=== PATIENT | female | born 1965 | race Hispanic/Latino ===

== ENCOUNTER 2016-10-24 20:45 | Emergency (ER) | payer OTHER ==
[2016-10-24 21:19] VITALS: BP 138/91; PULSE 122; O2SAT 96
--- NOTE | 2016-10-24 22:35 | ED.REPORT ---
HPI-General Illness Date of Service Oct 24, 2016 ED Provider: Mar Rowland MD This is a 51 year old female with a history of hypertension presenting to the emergency department due to epistaxis that began five hours ago. Pt is wearing a clamp at this time. She is unsure if bleeding occurred from one nare or both. Denies dizziness, lightheadedness, or SOB. Also reports chest pressure, last episode yesterday that lasts a few seconds at a time. Additional symptoms include chills and productive cough. Denies fever, vomiting, diaphoresis, change LOC, or nausea. Patient had a nose bleed one year ago that was treated by cauterization. No ASA today but took one yesterday Nursing Notes Stated Complaint: NOSE BLEED, VOMITING, HX OF HIGH BP Chief Complaint: General Complaint Nursing Notes Reviewed: Yes Allergies: Coded Allergies: No Known Allergies (Unverified , 02/23/16) General Time Seen by MD: 22:33 Chief Complaint Other Hx Obtained From: Patient Arrived By: Walk-in Sudden in Onset?: Yes Onset Occurred: 5 - 8 hours ago Symptom Duration: Since onset Severity: Current: Mild Pertinent Negative: Pt denies other symptoms Recent Healthcare: No recent doctor visit, No recent hospitalization Similar Sx Previous: No Past Medical History Past Medical History Reports: Hypertension Past Surgical History None reported Smoking History Never Smoker Social History Alcohol Use: Denies alcohol use Drug Use: Denies drug use Ambulatory Status Independent Review of Systems Full Review of Systems Constitutional: Reports: Chills, Denies: Fever Ears / Nose / Throat: Reports: Nose bleeding Respiratory: Denies: Non-productive cough, Shortness of breath GI: Denies: Abdominal pain, Constipation, Diarrhea, Nausea, Vomiting Neurologic: Denies: Headache Complete sys rev & neg: except as marked. Physical Exam Vital Signs Vital Signs Date Time Temp Pulse Resp B/P Pulse Ox O2 Delivery O2 Flow Rate FiO2 10/24/16 21:19 36.4 122 138/91 96 Room Air Initial VS: Reviewed General/Constitutional: Well-developed, Well-nourished Neck: Supple, Non-tender, Full range of motion Respiratory: Breath sounds normal, Clear to auscultation, No respiratory distress Cardiovascular: Regular rate & rhythm, Heart sounds normal, Intact distal pulses Abdomen / GI: Soft, Non-tender, No guarding, No rebound, No distention Extremities: Vascular intact, Neuro intact, No swelling, No tenderness Skin: Warm, Dry, No cyanosis Neurologic: Alert, Oriented, Nonfocal Psychiatric: Mood/affect normal, Behavior normal, Normal thought content Head / Eyes: Normocephalic, PERRL, EOMI, Conjunctiva NL (no conjunctival pallor ) ENT: Pharynx NL No active bleeding, dried blood present in bilateral nares Interpretation & Diagnostics Lab Results Interpretation Result Diagram: 10/25/1610410/25/16 010 Test 10/25/16 01:05 White Blood Count 10.2th/mm3 (3.8-10.1) Red Blood Count 3.86mil/mm3 (3.90-5.20) Hemoglobin 11.2g/dL (12.0-15.6) Hematocrit 33.5% (35.0-46.0) Mean Corpuscular Volume 86.8fL (81-100) Mean Corpuscular Hemoglobin 29.0pg (27.0-35.0) Mean Corpuscular Hemoglobin Concent 33.4% (32.0-37.0) Red Cell Distribution Width 12.9% (12.3-15.4) Platelet Count 261bil/L (150-400) Prothrombin Time 10.6sec (8.1-12.5) Prothromb Time International Ratio 0.99ratio Sodium Level 135mEq/L (134-144) Potassium Level 4.1mEq/L (3.5-5.2) Chloride Level 103mEq/L (97-108) Carbon Dioxide Level 20mmol/L (18-29) Blood Urea Nitrogen 34mg/dL (6-24) Creatinine 0.55mg/dL (0.57-1.00) Estimat Glomerular Filtration Rate 166mL/min (>59) Glucose Level 139mg/dL (60-99) Calcium Level 8.4mg/dL (8.5-10.1) Total Bilirubin 0.4mg/dL (0.0-1.2) Aspartate Amino Transf (AST/SGOT) 16U/L (0-50) Alanine Aminotransferase (ALT/SGPT) 15U/L (0-32) Alkaline Phosphatase 85U/L (25-150) Troponin T < 0.010ug/L (0.0-0.011) Total Protein 6.6g/dL (6.4-8.4) Albumin 3.7g/dL (3.4-5.0) ECG Interpretation ECG Interpretation: sinus tachycardia at rate of 109 t-wave inversion in AVR Time: 00:02 Interpreted by: ED physician Re-Eval/Medical Decision Med Decision/Clinical Course Delay in patient care, labs were not drawn when ordered 81-year-old female with past medical history of hypertension and epistaxis here with nosebleed and tachycardia. Differential diagnosis includes epistaxis versus anxiety versus anemia versus ACS. She did endorse chest pain yesterday, but has had no chest pain at all today. Initial troponin is normal. Her hemoglobin today is 11 down from 13 2 years ago. I do not feel she requires transfusion at this time. She has not had any nosebleed today. Given she has had no chest pain today, has a normal EKG, and her troponin is negative, I do not feel she requires further workup of her chest pain. CMP is unremarkable. She was givento go home with, and is amenable to follow-up with her primary care physician. He was given very strict return precautions. Time of Eval: 02:05 Re-Evaluation/Progress Note: Plan for d/c, all questions addressed Counseled Regarding: Diagnosis, Lab results, Need for follow-up, When/why to return to ED Discharge & Departure Primary Impression: Epistaxis Disposition: Home Discharge Condition All VS Reviewed: Yes Condition: Stable Patient Instructions: Epistaxis (ED) Additional Instructions: Thank you for seeking care in the emergency department. Your workup was reassuring. Follow up with your primary care provider for further evaluation of your symptoms. Please return to the emergency department with any new or worsening symptoms. Referrals: Phyllis Cardona (PCP) [place] Attestation Portions of this note were transcribed by Leon Carrillo. I, Dr. Rowland personally performed the history, physical exam and medical decision-making; I reviewed and confirmed the accuracy of the information in the transcribed note. Signed by: cesia Mayer. 10/24/2016, 03:00. Mar Rowland MD Oct 24, 2016 22:35 LEON CARRILLO Oct 24, 2016 22:36
[2016-10-25 01:21] LABS: Mean Corpuscular Volume 86.8 fL (81-100)
[2016-10-25 01:30] LABS: INR 0.99 ratio
[2016-10-25 01:35] LABS: TROPONIN T < 0.010 ug/L (0.0-0.011)
[2016-10-25 02:20] VITALS: BP 107/68; PULSE 97; RESP 23; O2SAT 98
--- NOTE | 2016-10-25 09:04 | DRSVH ---
PROCEDURE: X-RAY CHEST, TWO VIEWS ([id number]) INDICATIONS: chest pain TECHNIQUE: 2 views of the chest were acquired. COMPARISON: None. FINDINGS: Surgical changes and devices: None. Lungs and pleura: No pleural effusions or pneumothorax. Lungs are clear. Mediastinum: Mediastinal contours are normal. Heart size is normal. Bones and chest wall: No suspicious bony abnormalities. Soft tissues appear unremarkable. IMPRESSION: No acute cardiopulmonary disease. Dictated by: Killian Warren [facility] Interpreted: Annmarie Chirinos MD on 10/25/2016 at 9:03 Transcribed by: EVA on 10/25/2016 at 9:04 Approved by: Annmarie Chirinos MD, PhD on 10/25/2016 at 17:17
== END 2016-10-25 02:20 | disposition home or self-care (01) ==
LOC: SED 20:45
DX: R04.0 Epistaxis (principal); R07.89 Other chest pain; I10 Essential (primary) hypertension

== ENCOUNTER 2016-12-14 19:51 | Emergency (ER) | payer OTHER ==
[~2016-12-14] VITALS: Ht 160 cm; Wt 94.1 kg
[2016-12-14 19:55] VITALS: BP 138/89; PULSE 70; RESP 18; O2SAT 99
--- NOTE | 2016-12-14 20:54 | DRSVH ---
PROCEDURE: X-RAY CHEST ONE VIEW, PORTABLE ([id number]) INDICATIONS: CHEST PAIN, worse with stress at work TECHNIQUE: One view of the chest was acquired. COMPARISON: None. FINDINGS: Surgical changes and devices: None. Lungs and pleura: No pleural effusions or pneumothorax. Lungs are clear. Mediastinum: Mediastinal contours appear normal. Heart size is normal. Bones and chest wall: No suspicious bony lesions. Overlying soft tissues appear unremarkable. IMPRESSION: No acute cardiopulmonary disease process. Dictated by: Annmarie Chirinos MD, PhD on 12/14/2016 at 20:52 Approved by: Annmarie Chirinos MD, PhD on 12/14/2016 at 20:53
--- NOTE | 2016-12-14 21:54 | ED.REPORT ---
HPI-Chest Pain 40 and Over Date of Service December 14, 2016 ED Provider: Quique Sampson MD A 51 year old female with a history of hypertension is referred to the ED from Urgent Care due to left-sided chest pain. The pt has been experiencing this chest pain intermittently for two weeks but denies diaphoresis or shortness of breath during the episodes. The episodes seem to be related to stress at work and occur for approximately a minute once per day. She experienced an episode while at Urgent Care at 19:00 and was referred to the ED for further evaluation. Nursing Notes Stated Complaint: CHEST PAIN/FROM [facility] Chief Complaint: Chest Pain Nursing Notes Reviewed: Yes Allergies: Coded Allergies: No Known Allergies (Unverified , 02/23/16) Scheduled Lisinopril (Lisinopril) 10 Mg Tablet 10 MG PO DAILY General Time Seen by MD: 21:52 Chief Complaint Chest pain Hx Obtained From: Patient, Daughter, Other family... Arrived By: Walk-in Sudden in Onset?: Yes Onset Occurred: 1 - 4 hours ago Recent Healthcare: No recent hospitalization, Recent doctor visit Similar Sx Previous: Yes Past Medical History Past Medical History Reports: Hypertension Past Surgical History renal lithiasis Reports: Smoking History Never Smoker Social History Alcohol Use: Denies alcohol use Drug Use: Denies drug use Other Social History: Good social support Ambulatory Status Independent Review of Systems Respiratory: Denies: Non-productive cough, Shortness of breath Cardiovascular: Reports: Chest pain GI: Denies: Abdominal pain Skin: Denies Diaphoresis Complete sys rev & neg: except as marked. Physical Exam Initial Vital Signs Vital Signs (First) Date Time Temp Pulse Resp B/P Pulse Ox O2 Delivery O2 Flow Rate FiO2 12/14/16 19:55 36.2 70 18 138/89 99 Room Air Initial VS: Reviewed, Vital signs normal General/Constitutional: Awake, Alert, Well hydrated Respiratory / Chest: Atraumatic, Breath sounds NL, Breath sounds = bilat, No respiratory distress no chest wall tenderness Cardiovascular: Heart rate NL, Regular rhythm, Heart sounds NL Abdomen: Atraumatic, Soft, Non-tender Neck: Atraumatic, Supple, Full range of motion, No JVD Back: Atraumatic, Full range of motion Lower Extremity / Pelvis / MS: Atraumatic, Full range of motion, No edema Skin: Atraumatic, Color NL, No rash, Warm, Dry Neurologic: Oriented X3, Speech NL, No motor deficits, No sensory deficits Psychiatric: Affect NL, Mood NL Head / Eyes: Atraumatic, Normocephalic, PERRL, EOMI ENT: Atraumatic, Airway patent, Mucous membranes moist Upper Extremity / MS: Atraumatic, Full range of motion, No edema Interpretation & Diagnostics Lab Results Interpretation Result Diagram: 12/14/16211812/14/162118 Test 12/14/16 21:19 White Blood Count 7.3th/mm3 (3.8-10.1) Red Blood Count 4.04mil/mm3 (3.90-5.20) Hemoglobin 10.6g/dL (12.0-15.6) Hematocrit 33.4% (35.0-46.0) Mean Corpuscular Volume 82.7fL (81-100) Mean Corpuscular Hemoglobin 26.2pg (27.0-35.0) Mean Corpuscular Hemoglobin Concent 31.7% (32.0-37.0) Red Cell Distribution Width 13.6% (12.3-15.4) Platelet Count 310bil/L (150-400) Neutrophils (%) (Auto) 56.4% (40-74) Lymphocytes (%) (Auto) 30.1% (14-46) Monocytes (%) (Auto) 8.9% (4-12) Eosinophils (%) (Auto) 4.0% (0-5) Basophils (%) (Auto) 0.5% (0-3) D-Dimer < 0.50mg/L FEU (<0.50) Sodium Level 138mEq/L (134-144) Potassium Level 3.9mEq/L (3.5-5.2) Chloride Level 101mEq/L (97-108) Carbon Dioxide Level 21mmol/L (18-29) Blood Urea Nitrogen 13mg/dL (6-24) Creatinine 0.57mg/dL (0.57-1.00) Estimat Glomerular Filtration Rate 159mL/min (>59) Glucose Level 102mg/dL (60-99) Calcium Level 9.2mg/dL (8.5-10.1) Magnesium Level 2.0mg/dL (1.6-2.6) Total Bilirubin 0.3mg/dL (0.0-1.2) Aspartate Amino Transf (AST/SGOT) 32U/L (0-50) Alanine Aminotransferase (ALT/SGPT) 32U/L (0-32) Alkaline Phosphatase 121U/L (25-150) Troponin T 0.010ug/L (0.0-0.011) Total Protein 7.9g/dL (6.4-8.4) Albumin 4.1g/dL (3.4-5.0) Hold Lal Top Tube Received (Received) Lab values outside NL range: no clinical significance. ECG Interpretation ECG Interpretation: normal sinus rhythm with a rate of 63 low voltage, precordial leads Time: 20:31 Interpreted by: ED physician X-Ray Chest Interpretation Chest Xray Interpretation: IMPRESSION: No acute cardiopulmonary disease process. Dictated by: Annmarie Chirinos MD, PhD on 12/14/2016 at 20:52 Approved by: Annmarie Chirinos MD, PhD on 12/14/2016 at 20:53 Interpretation / Wet Read by: Interpret - Radiologist Re-Eval/Medical Decision Med Decision/Clinical Course 51-year-old female with left upper chest wall pain. ER evaluation is negative. She likely has musculoskeletal pain secondary to her work. Source of Hx: Old records Time of Eval: 23:27 Patient Status: Condition improved Re-Evaluation/Progress Note: Pt rechecked, who is feeling better and requests discharge. She denies repeat troponin at this time. The diagnosis and plan for discharge are discussed. The pt understands and agrees with the plan. All questions are addressed at this time. Counseled Regarding: Diagnosis, Lab results, Need for follow-up, When/why to return to ED Discharge & Departure Primary Impression: Chest pain with low risk for cardiac etiology Disposition: Home Discharge Condition All VS Reviewed: Yes Condition: Stable Patient Instructions: Chest Pain (ED) Additional Instructions: All of the tests indicate that there is no serious problem with your heart and lungs. This pain does not seem to be coming from your heart As I recommended to use earlier, we could be even more sure if we did a repeat blood tests now, but you did not want to stay for that. Follow-up with your regular doctor as needed for recurrent pain. Referrals: [facility] KATEY-EMILY BENSON (PCP) Scribe Attestation Portions of this note were transcribed by Lex Mitchell. I, Dr. Sampson personally performed the history, physical exam and medical decision-making; I reviewed and confirmed the accuracy of the information in the transcribed note. Signed by: Kaela Feldman, 12/14/16 and 2337. copies to: [facility],Quique Mosley MD December 14, 2016 21:54 LEX MITCHELL December 14, 2016 22:03
[2016-12-14 21:55] LABS: BASOPHILS % (AUTO) 0.5 % (0-3); MONOCYTES % (AUTO) 8.9 % (4-12); Mean Corpuscular Hemoglobin 26.2 pg (27.0-35.0); Mean Corpuscular Volume 82.7 fL (81-100); NEUTROPHILS % (AUTO) 56.4 % (40-74); Platelet Count 310 bil/L (150-400)
[2016-12-14 22:28] LABS: TROPONIN T 0.01 ug/L (0.0-0.011)
[2016-12-14 22:31] VITALS: BP 150/77; PULSE 75; RESP 14; O2SAT 97
[2016-12-14] MEDS ORDERED: LISI10TA PO (23:33)
[2016-12-14 23:41] VITALS: BP 139/78; PULSE 75; RESP 20; O2SAT 99
== END 2016-12-14 23:43 | disposition home or self-care (01) ==
LOC: SED 19:51
DX: R07.89 Other chest pain (principal); F43.9 Reaction to severe stress, unspecified; I10 Essential (primary) hypertension